=== PATIENT | male | born 1975 | race Caucasian/White ===

== ENCOUNTER 2023-10-01 02:52 | Emergency (ER) | payer BC, SELFPAY ==
--- NOTE | 2023-10-01 02:59 | ECG_ITS ---
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
[2023-10-01 03:02] VITALS: BP 150/88; PULSE 94; RESP 20; TEMP 36.8; O2SAT 94; BMI 38.3
--- NOTE | 2023-10-01 03:13 | XR_ITS ---
The [address] [address] Patient Name: CHANTAL BRANDT MRN: [id number] date: 1975 Sex: M Assigned Patient Location: ER Current Patient Location: ER Accession/Order Number: [id number] Exam Date: 10/01/2023 03:20 Report Date: 10/01/2023 03:39 At the request of: HANNAH PARK Procedure: XR chest 1V EXAM: XR chest 1V HISTORY: chest pain COMPARISON: Chest radiographs dated 07/24/2015. TECHNIQUE: One view of the chest was obtained. FINDINGS: The cardiac silhouette is normal in size. The lungs are clear. There is no significant pneumothorax or pleural effusion. No acute osseous abnormality is seen. XR/XR chest 1V IMPRESSION: 1. No acute cardiopulmonary abnormality. Electronically authenticated by: Suzi GALINDO Date: 10/01/2023 03:39
[2023-10-01 03:15] VITALS: PULSE 89
[2023-10-01 03:16] VITALS: O2SAT 93
[2023-10-01 03:35] LABS: Basophils Absolute Auto 0.1 10^3/uL (0.0-0.1); Eosinophils Absolute Auto 0.5 10^3/uL (0.0-0.7); Eosinophils Percent Auto 5.7 % (0.9-7.0); Hematocrit 49.2 % (42.0-54.0); Hemoglobin 15.9 g/dL (14.0-18.0); Immature Granulocytes Abs Auto 0.04 10^3/uL (0.00-0.03); Immature Granulocytes Pct Auto 0.5 % (0.0-0.5); Lymphocytes Absolute Auto 2.7 10^3/uL (1.2-3.8); Lymphocytes Percent Auto 31.5 % (20.5-60.0); Mean Corpuscular HGB Conc 32.3 g/dL (29.9-35.2); Mean Corpuscular Hemoglobin 28.4 pg (25.9-34.0); Mean Corpuscular Volume 87.9 fL (80.0-94.0); Monocytes Absolute Auto 0.8 10^3/uL (0.3-0.8); Monocytes Percent Auto 9.5 % (1.7-12.0); Neutrophils Absolute Auto 4.5 10^3/uL (1.4-6.5); Neutrophils Percent Auto 51.8 % (43.0-75.0); Platelet Count 297 10^3/uL (150-450); Red Cell Distribution Width 12.1 % (11.0-15.0); White Blood Count 8.6 10^3/uL (4.0-11.0)
[2023-10-01 03:37] LABS: Anion Gap 12.5; Calcium 8.7 mg/dL (8.5-10.1); Carbon Dioxide 26.3 mmol/L (21.0-32.0); Chloride 106 mmol/L (98-107); Estimated GFR (African America >60 (>=60); Estimated GFR (Non-African Ame >60 (>=60); Glucose 98 mg/dL (74-106); Potassium 3.8 mmol/L (3.5-5.1); Sodium 141 mmol/L (136-145)
[2023-10-01 04:19] LABS: Troponin I High Sensitivity 6.6 pg/mL (4.0-76.1)
--- NOTE | 2023-10-01 04:19 | ED.CHESTPAI1 ---
HPI - Chest Pain General Chief Complaint: Chest Pain Stated Complaint: HYPERTENSION Time Seen by Provider: 10/01/23 03:44 Source: patient Mode of arrival: walk-in Limitations: no limitations History of Present Illness HPI narrative: patient at work tonight describes palpitations of his heart. States when this occurs usually his BP is elevated. States he had a co worker take his BP and it was elevated at 180s and he came in. States he can tell when his BP is elevated because he can feel the palpitation sensation. States he does not take medication for hypertension. Denies chest pain, dyspnea or nausea. Currently asymptomatic . past history of anxiety Related Data Home Medications Medication Instructions Recorded Confirmed bupropion HCl 150 mg 24 hr tablet, 150 mg PO DAILY 10/01/23 10/01/23 extended release citalopram 40 mg tablet 40 mg PO DAILY 10/01/23 10/01/23 Allergies Allergy/AdvReac Type Severity Reaction Status Date / Time No Known Drug Allergies Allergy Verified 10/01/23 03:07 Review of Systems ROS Status of ROS 10 or more systems reviewed and unremarkable except as noted in history and below [facility] Medical History (Updated 10/01/23 @ 06:39 by Chucho Arreola MD) Depression ?F32.A - Depression, unspecified (ICD-10) Anxiety ?F41.9 - Anxiety disorder, unspecified (ICD-10) Social History Smoking status: Former smoker Exam Constitutional Vital Signs, click to edit/add: Last Vital Signs Temp 98.2 F 10/01/23 03:02 Pulse 77 10/01/23 06:21 Resp 14 10/01/23 06:21 BP 130/81 10/01/23 06:21 Pulse Ox 97 10/01/23 06:21 O2 Del Method Room Air 10/01/23 06:21 Common normals: no apparent distress, oriented x3, healthy appearing, alert and well nourished [facility] Common normals: normocephalic and head/scalp atraumatic Eye Common normals: EOMs intact bilaterally and conjunctivae normal Respiratory Common normals: normal respiratory effort, no retractions, no use of accessory muscles and clear to auscultation bilaterally Cardio Common normals: regular rate, regular rhythm, S1 normal heart sound and S2 normal heart sound GI Common normals: Normal to inspection, nondistended, normoactive bowel sounds present, soft to palpation and non-tender Extremity Common normals: normal to inspection and full ROM Neuro Common normals: oriented x3, CN's II-XII intact bilaterally, moves all extremities and no focal motor deficits Psych Appearance: grossly normal Course Vital Signs Vital signs: Vital Signs Temperature 98.2 F 10/01/23 03:02 Pulse Rate 94 H 10/01/23 03:02 Respiratory Rate 20 10/01/23 03:02 Blood Pressure 150/88 H 10/01/23 03:02 Pulse Oximetry 94 L 10/01/23 03:02 Oxygen Delivery Method Room Air 10/01/23 03:02 Temperature 98.2 F 10/01/23 03:02 Pulse Rate 77 10/01/23 06:21 Respiratory Rate 14 10/01/23 06:21 Blood Pressure 130/81 10/01/23 06:21 Pulse Oximetry 97 10/01/23 06:21 Oxygen Delivery Method Room Air 10/01/23 06:21 MDM - Chest Pain MDM Narrative Medical decision making narrative: patient presents with palpitations and elevated BP. His BP normalized while here without intervention. Serial troponin neg. CBC, BMP normal. Patient discharged home asymptomatic and advised to follow up with his doctor Lab Data Labs: Lab Results 10/01/23 10/01/23 Range/Units 03:10 06:05 WBC 8.6 (4.0-11.0) 10^3/uL RBC 5.60 (4.70-6.10) 10^6/uL Hgb 15.9 (14.0-18.0) g/dL Hct 49.2 (42.0-54.0) % MCV 87.9 (80.0-94.0) fL MCH 28.4 (25.9-34.0) pg MCHC 32.3 (29.9-35.2) g/dL RDW 12.1 (11.0-15.0) % Plt Count 297 (150-450) 10^3/uL MPV 11.0 (9.5-13.5) fL Neut % (Auto) 51.8 (43.0-75.0) % Lymph % (Auto) 31.5 (20.5-60.0) % [place] % (Auto) 9.5 (1.7-12.0) % Eos % (Auto) 5.7 (0.9-7.0) % Baso % (Auto) 1.0 (0.2-2.0) % Neut # (Auto) 4.5 (1.4-6.5) 10^3/uL Lymph # (Auto) 2.7 (1.2-3.8) 10^3/uL [place] # (Auto) 0.8 (0.3-0.8) 10^3/uL Eos # (Auto) 0.5 (0.0-0.7) 10^3/uL Baso # (Auto) 0.1 (0.0-0.1) 10^3/uL Abs Immat Gran (auto) 0.04 H (0.00-0.03) 10^3/uL Imm/Tot Granulo (auto) 0.5 (0.0-0.5) % Sodium 141 (136-145) mmol/L Potassium 3.8 (3.5-5.1) mmol/L Chloride 106 (98-107) mmol/L Carbon Dioxide 26.3 (21.0-32.0) mmol/L Anion Gap 12.5 BUN 15.0 (7.0-18.0) mg/dL Creatinine 1.07 (0.70-1.30) mg/dL Est GFR ( Amer) >60 (>=60) Est GFR (Non-Af Amer) >60 (>=60) BUN/Creatinine Ratio 14.0 Glucose 98 (74-106) mg/dL Calcium 8.7 (8.5-10.1) mg/dL Troponin I High Sens 6.6 8.4 (4.0-76.1) pg/mL Discharge Plan Discharge Chief Complaint: Chest Pain Clinical Impression: Palpitations Patient Disposition: Home, Self-Care Time of Disposition Decision: 06:35 Mode of Transportation: Private Vehicle Prescriptions / Home Meds: No Action bupropion HCl 150 mg tablet extended release 24 hr 150 mg PO DAILY citalopram 40 mg tablet 40 mg PO DAILY Instructions: Heart Palpitations (ED) Stand Alone Forms: Portal Instructions Referrals: CHEVY KIRKLAND [Primary Care Provider] - 1 week
[2023-10-01 04:25] VITALS: BP 140/86; PULSE 91; RESP 24; O2SAT 97
[2023-10-01 05:30] VITALS: BP 129/85; PULSE 79; RESP 18; O2SAT 98
[2023-10-01 06:21] VITALS: BP 130/81; PULSE 77; RESP 14; O2SAT 97
[2023-10-01 06:28] LABS: Troponin I High Sensitivity 8.4 pg/mL (4.0-76.1)
== END 2023-10-01 06:48 | disposition home or self-care (01) ==
PROVIDERS: Emergency Provider Internal Medicine; PCP Family Medicine
DX: R00.2 Palpitations (principal); F32.A Depression, unspecified; F41.9 Anxiety disorder, unspecified; Z87.891 Personal history of nicotine dependence
CPT/HCPCS: 36415; 71045; 80048; 84484; 85025; 93005; 99285